=== PATIENT | male | born 1955 | race Two or more races ===

== ENCOUNTER 2023-10-11 16:10 | Emergency (ER) | payer OTHER ==
[~2023-10-11] VITALS: Ht 175.3 cm; Wt 88.5 kg
[2023-10-11] MEDS ORDERED: COZAAR100 MG PO (16:39)
[2023-10-11] MEDS ORDERED: ADCIRCA20 MG (16:39)
[2023-10-11] MEDS ORDERED: KETOROLAC TROMETHAMINE 30 MG VIAL IV ONE (17:00)
[2023-10-11] MEDS ORDERED: KETO10TA2 PO (19:15)
== END 2023-10-11 19:30 | disposition home or self-care (01) ==
LOC: ER 16:10
DX: S80.01XA Contusion of right knee, initial encounter (principal); S70.01XA Contusion of right hip, initial encounter; W10.8XXA Fall (on) (from) other stairs and steps, initial encounter; Y93.89 Activity, other specified; Y92.89 Other specified places as the place of occurrence of the external cause; Y99.9 Unspecified external cause status; M79.604 Pain in right leg; I10 Essential (primary) hypertension
CPT/HCPCS: 73501; 73560; 96365; 99283; J1885